=== PATIENT | female | born 1940 ===

== ENCOUNTER → 2020-10-24 | Outpatient (CLI) | payer MEDICARE, OTHER | END | disposition home or self-care (01) | LOC: PLD 19:49 → LAB SHORT 19:49 | DX: R21 Rash and other nonspecific skin eruption (principal); D48.5 Neoplasm of uncertain behavior of skin; I83.93 Asymptomatic varicose veins of bilateral lower extremities; L82.1 Other seborrheic keratosis; L82.0 Inflamed seborrheic keratosis; L53.8 Other specified erythematous conditions; L29.8 Other pruritus; R20.8 Other disturbances of skin sensation; D18.01 Hemangioma of skin and subcutaneous tissue; L81.4 Other melanin hyperpigmentation | CPT/HCPCS: 87015; 87071; 87075; 87102; 87116; 87205; 87206 ==